=== PATIENT | male | born 1960 | race African-American/Black ===

== ENCOUNTER 2019-12-24 19:06 | Emergency (ER) | payer MEDICARE, MEDICAID ==
[~2019-12-24] VITALS: Ht 177.8 cm; Wt 81.0 kg
[~2019-12-24 19:06] MED LIST: PROZAC
[2019-12-24 22:00] LABS: CHLORIDE 110 mEq/L (98-107)
[2019-12-24 22:06] LABS: ETHANOL BLOOD < 10 mg/dL
[2019-12-24 22:09] LABS: BASOPHILS % 0.5 % (0.0-2.0); HEMATOCRIT. 42.7 % (42.0-52.0); HEMOGLOBIN. 14.3 g/dL (14.0-18.0); LYMPHOCYTES % 18.8 % (20.0-50.0); MEAN CORPUSCULAR HEMOGLOBIN 29.6 pg (28.0-32.0); MEAN CORPUSCULAR VOLUME 88.1 fL (80.0-94.0); MEAN PLATELET VOLUME 8.8 fl (7.4-10.4); MONOCYTES % 9.3 % (2.0-8.0); NEUTROPHILS % 70.4 % (40.0-76.0); PLATELET 165 x1000/uL (130-400); RED BLOOD CELL COUNT 4.84 mill/uL (4.7-6.1); RED CELL DISTRIBUTION WIDTH 13.9 % (11.6-14.6)
[2019-12-24 22:34] VITALS: BP 130/88
== END 2019-12-24 22:35 | disposition home or self-care (01) ==
LOC: ER 19:06
DX: R46.2 Strange and inexplicable behavior (principal); I10 Essential (primary) hypertension
CPT/HCPCS: 36415; 80053; 80320; 82140; 84484; 85025; 93005; 99284; G0480

== ENCOUNTER 2020-01-11 15:09 | Emergency (ER) | payer MEDICARE, MEDICAID ==
[~2020-01-11] VITALS: Ht 172.7 cm; Wt 83.0 kg
[2020-01-11 15:15] VITALS: BP 131/97
== END 2020-01-11 16:05 | disposition home or self-care (01) ==
LOC: ER 15:09
DX: F10.10 Alcohol abuse, uncomplicated (principal); F19.10 Other psychoactive substance abuse, uncomplicated; F12.10 Cannabis abuse, uncomplicated; Y90.9 Presence of alcohol in blood, level not specified
CPT/HCPCS: 99283